=== PATIENT | female | born 1940 | race Caucasian/White ===

== ENCOUNTER → 2017-05-19 09:27 | Outpatient (CLI) | payer MEDICARE ==
[2013-11-08 08:55] VITALS: BMI 22.0
[~2017-05-19 09:27] MED LIST: FLUTICASONE PRO16 GM NS; NORCO 10/325 TA1 TA1 PO; PROAIR HFA8.5 GM INH; SALINE NASAL SP45 ML NS
== END | disposition home or self-care (01) ==
LOC: D.RAD 09:27
DX: K21.9 Gastro-esophageal reflux disease without esophagitis (principal)

== ENCOUNTER → 2019-03-23 08:55 | Outpatient (CLI) | payer OTHER ==
[2013-11-08 08:55] VITALS: BMI 22.0
[2019-03-23 09:40] LABS: BASOPHILS 0.3 % (0-2); HEMATOCRIT 42.2 % (36.0-48.0); HEMOGLOBIN 13.7 g/dL (12-16); IMMATURE GRANULOCYTES 0.2 % (0-5); LYMPHOCYTES 29.3 % (15-50); MCH 30.5 pg (26.0-34.0); MCHC 32.5 g/dL (31.0-37.0); MEAN PLATELET VOLUME 9.8 fL (7.4-10.4); NEUTROPHILS 62.2 % (40-80); PLATELET COUNT 193 10x3/uL (130-400); RBC 4.49 10x6/uL (4.00-5.40); WBC 6.1 10x3/uL (4.8-10.8)
[2019-03-23 09:54] LABS: ALKALINE PHOSPHATASE 55 U/L (46-116); ALT (SGPT) 21 U/L (10-68); BILIRUBIN - TOTAL 0.83 mg/dL (0.2-1.3); CALC OSMOLALITY 280 mosm/kg (275-300); CALCIUM 9.3 mg/dL (8.5-10.1); CARBON DIOXIDE 30.6 mmol/L (21.0-32.0); CHLORIDE - SERUM 103 mmol/L (98-107); CHOLESTEROL, TOTAL 180 mg/dL (0-200); CREATININE - SERUM 0.7 mg/dL (0.6-1.3); GLUCOSE 106 mg/dL (74-106); HDL CHOLESTEROL 91 mg/dL (32-96); LDL CHOLESTEROL 80 mg/dL (0-100); LDL-HDL RATIO 0.9 ratio (1.5-3.5); POTASSIUM - SERUM 4.3 mmol/L (3.5-5.1); PROTEIN - SERUM 6.9 g/dL (6.4-8.2); SODIUM 140 mmol/L (136-145); THYROID STIMULATING HORMONE 1.18 uIU/mL (0.36-3.74); TRIGLYCERIDE 48 mg/dL (30-200); UREA NITROGEN 19 mg/dL (7-18); eGFR NON AFRICAN AMERICAN 85 mL/min (90-120)
== END | disposition home or self-care (01) ==
LOC: D.LAB 08:55
PROVIDERS: ATTEND Family Medicine
DX: I10 Essential (primary) hypertension (principal); E03.9 Hypothyroidism, unspecified; M89.9 Disorder of bone, unspecified; Z79.899 Other long term (current) drug therapy

== ENCOUNTER → 2020-01-24 08:16 | Outpatient (CLI) | payer OTHER ==
[2013-11-08 08:55] VITALS: BMI 22.0
--- NOTE | ~2020-01-24 | EC ---
PATIENT:WAGNER BRAGA DATE OF SERVICE: 01/24/20 SEX: F MEDICAL RECORD: [id number] DATE OF : 38 [facility] AGE OF PATIENT: 79 ADMISSION DATE: 01/24/20 REFERRING PHYSICIAN: INTERPRETING PHYSICIAN: HARMAN LOGAN MD ECHOCARDIOGRAM REPORT ECHO CHARGES 4 ECHO COMPLETE Date: 01/24/20 CLINICAL DIAGNOSIS: DYSPNEA/PALPITATIONS/PVC'S ECHOCARDIOGRAPHIC MEASUREMENTS (adult normal given) AC root (d.<3.7cm) 2.7 cm LV Septum d (<1.2 cm> 1.0 cm Valve Excursion 1.6 cm LV Septum (systole) 1.7 cm Left Atria (s.<4.0cm> 3.1 cm LVPW d(<1.2cm) 1.1 cm RV (d.<2.3cm) 2.5 cm LVPW (sytole) 1.9 cm LV diastole(<5.6CM) 5.2 cm MV E-F(>70mm/sec) cm LV systole 2.7 cm LVOT Diameter 1.8 cm MV exc.(>10mm) cm Est.ejection fraction (50-75%) % DOPPLER: LVIT cm/sec A 72.0 cm/sec E 53.0 cm/sec LA cm/sec RVSP 43.0 mmHg LVOT 89.0 cm/sec AOP1/2T m/s Asc. Ao 133 cm/sec RVOT 57.0 cm/sec RA cm/sec PA 68.0 cm/sec AV Gradient Peak 7.1 mmHg AV Mean 3.9 mmHg AV Area 1.6 cm MV Gradient Peak 2.9 mmHg MV Mean 1.3 mmHg MV Area cm COMMENTS: OP - HC Children'S Literature Professor: 1 ARNOLD AMARILLO Auto Body Technician: 3 Dr. Mandel TAPE# PACS Pericardial Effusion N DATE OF SERVICE: Adequate 2D, color flow imaging, spectral Doppler, and M-Mode. No LVH. LV internal dimension is normal. Wall motion is normal. EF is greater than or equal to 55%. Aortic valve is tricuspid. No evidence of stenosis by Doppler interrogation. Left atrium is normal at 3.1 cm. Mitral valve shows no prolapse. Mild MR. Right-sided chambers are grossly normal. [id number] TR. RV systolic pressure is estimated greater than or equal to 43 mmHg via the continuity equation. ECHOCARDIOGRAM REPORT [id number] WAGNER BRAGA TRANSINT:[id number] Voice Confirmation ID: [id number] DOCUMENT ID: [id number] HARMAN LOGAN MD CC: [id number] DICTATION DATE: 01/28/20 1258 DRIVER [employer]: 01/28/20 2349 DEP CLI 01/24/20 [place] [id number] [place] [id number]
== END | disposition home or self-care (01) ==
LOC: D.HCCECHO 08:16
PROVIDERS: ATTEND Internal Medicine Interventional Cardiology
DX: R06.00 Dyspnea, unspecified (principal)